=== PATIENT | female | born 1990 | race Caucasian/White ===

== ENCOUNTER 2024-02-18 22:46 | Observation (INO) | payer BC, SELFPAY ==
[2024-02-18 23:02] VITALS: BP 119/63; BMI 25.5
[2024-02-18 23:44] LABS: Hematocrit 30.2 % (37.0-47.0); Hemoglobin 10.3 g/dL (12.0-16.0); Mean Corp Hgb Conc. 34.1 g/dL (33.0-37.0); Mean Corpuscular Hgb 32.4 pg (27.0-31.0); Mean Platelet Volume 10.8 fL (7.4-10.4); Platelet Count 218 10^3/uL (130-400); Red Blood Cell Count 3.18 10^6/uL (4.20-5.40); Red Cell Dist. Width 12.8 % (11.5-14.5); White Blood Cell Count 11.2 10^3/uL (4.8-10.8)
[2024-02-18] MEDS: CELESTONE SOLUSPAN 2 MG IM (23:55)
== END 2024-02-19 08:03 | disposition home or self-care (01) ==
LOC: LDRP 22:46
PROVIDERS: Obstetrics & Gynecology; ADMITTING PHYSICIAN Obstetrics & Gynecology
DX: O60.03 Preterm labor without delivery, third trimester (principal); Z3A.35 35 weeks gestation of pregnancy; Z88.1 Allergy status to other antibiotic agents; Z88.0 Allergy status to penicillin
CPT/HCPCS: 85027; 86850; 86900; 86901; 87070; G0378

== ENCOUNTER 2024-02-19 22:15 | Observation (INO) | payer BC, SELFPAY ==
[2024-02-19 22:23] VITALS: BP 106/61; BMI 25.5
[2024-02-19] MEDS: CELESTONE SOLUSPAN 2 MG IM (22:42)
== END 2024-02-19 22:58 | disposition home or self-care (01) ==
LOC: LDRP 22:15
PROVIDERS: ADMITTING PHYSICIAN Obstetrics & Gynecology
DX: O60.03 Preterm labor without delivery, third trimester (principal); Z3A.35 35 weeks gestation of pregnancy
CPT/HCPCS: 96372; J0702; G0378

== ENCOUNTER 2024-02-22 15:02 | Inpatient (IN) | payer BC, SELFPAY ==
[2024-02-22 15:41] VITALS: BP 98/57; BMI 27.1
[2024-02-22] MEDS: VANCOCIN 300 MG IV (17:55)
[2024-02-22] MEDS: VANCOCIN 300 ML IV (17:55)
[2024-02-22] MEDS: LR 1000 IV (17:56)
[2024-02-22 17:58] LABS: % Basophils 0.3 % (0-2); % Immature Granulocytes 0.5 % (0-0.5); % Lymphocytes 10.5 % (20.5-51.1); % Monocytes 10.9 % (1.7-9.3); % Neutrophils 77.8 % (42.2-75.2); Absolute Immature Granulocytes 0.1 10^3/uL (0-0.05); Absolute Monocytes 1.1 10^3/uL (0.1-0.6); Absolute Neutrophils 7.7 10^3/uL (1.4-6.5); Hematocrit 27.3 % (37.0-47.0); Hemoglobin 9.7 g/dL (12.0-16.0); Mean Corp Hgb Conc. 35.5 g/dL (33.0-37.0); Mean Corpuscular Hgb 32.1 pg (27.0-31.0); Mean Corpuscular Volume 90.4 fL (81.0-99.0); Mean Platelet Volume 10.8 fL (7.4-10.4); Nucleated Red Blood Cells % 0 %; Platelet Count 237 10^3/uL (130-400); Red Blood Cell Count 3.02 10^6/uL (4.20-5.40); Red Cell Dist. Width 13.1 % (11.5-14.5); White Blood Cell Count 9.8 10^3/uL (4.8-10.8)
[2024-02-23] MEDS: VANCOCIN 300 ML IV (01:57)
[2024-02-23] MEDS: VANCOCIN 300 MG IV (01:57)
[2024-02-23] MEDS: LR 1000 IV ×2 (02:00→11:59)
[2024-02-23] MEDS: VANCOCIN IV ×2 (10:16)
[2024-02-23] MEDS: PITOCIN 30 UNITS/NSS 500 ML IV ×2 (11:59→18:10)
[2024-02-23] MEDS: SUBLIMAZE 100 MCG EPIDURAL (14:43)
[2024-02-23] MEDS: FENTANYL/BUPIVACAINE 100 EPIDURAL (14:43)
[2024-02-24 06:19] LABS: Hematocrit 26.4 % (37.0-47.0); Hemoglobin 9.3 g/dL (12.0-16.0)
[2024-02-24] MEDS: PRENATAL PLUS 1 TABLET PO (08:25)
[2024-02-24] MEDS: SENOKOT-S 1 TABLET PO (08:25)
[2024-02-24] MEDS: FEOSOL 325 MG PO (08:25)
[2024-02-24 12:09] LABS: Syphilis/T. pallidum Ab Reflex Negative (Negative)
[2024-02-25] MEDS: FEOSOL 325 MG PO (07:24)
[2024-02-25] MEDS: SENOKOT-S 1 TABLET PO (07:25)
[2024-02-25] MEDS: PRENATAL PLUS 1 TABLET PO (07:25)
== END 2024-02-25 21:00 | disposition home or self-care (01) | DRG 805 ==
LOC: LDRP 15:02
PROVIDERS: Obstetrics & Gynecology; ADMITTING PHYSICIAN Obstetrics & Gynecology; ATTENDING PHYSICIAN Obstetrics & Gynecology; FAMILY PHYSICIAN Obstetrics & Gynecology
PROC: 10E0XZZ Delivery of Products of Conception, External Approach (ICD-10-PCS; 2024-02-23)
PROC: 10907ZC Drainage of Amniotic Fluid, Therapeutic from Products of Conception, Via Natural or Artificial Opening (ICD-10-PCS; 2024-02-23)
DX: O60.14X0 Preterm labor third trimester with preterm delivery third trimester, not applicable or unspecified (principal); O45.93 Premature separation of placenta, unspecified, third trimester; Z37.0 Single live birth; Z3A.36 36 weeks gestation of pregnancy
CPT/HCPCS: 88307; 85014; 85018; 85025; 86780; 86850; 86900; 86901